=== PATIENT | female | born 1950 | race Caucasian/White ===

== ENCOUNTER → 2017-04-04 | Outpatient (CLI) | payer OTHER ==
[~2017-04-04] MED LIST: ABILIFY5 MG PO; ACTONEL 5MG TABL5 MG PO; EVISTA 60MG60 MG/TAB PO; KEPPRA 500MG500 MG PO; LEXAPRO 10MG10 MG PO
== END ==
LOC: MC.RAD 10:03
DX: Z12.31 Encounter for screening mammogram for malignant neoplasm of breast (principal); Z98.890 Other specified postprocedural states

== ENCOUNTER 2018-02-05 16:00 | Outpatient (RCR) | payer MEDICARE, OTHER | END 2018-04-21 | disposition home or self-care (01) | LOC: WSST | DX: R49.0 Dysphonia (principal) | CPT/HCPCS: G9171-GN; G9172-GN ==

== ENCOUNTER → 2018-05-01 | Outpatient (CLI) | payer MEDICARE, OTHER | LOC: MC.RAD 10:36 | DX: Z12.31 Encounter for screening mammogram for malignant neoplasm of breast (principal); Z98.82 Breast implant status ==

== ENCOUNTER → 2019-05-21 | Outpatient (CLI) | payer MEDICARE, OTHER ==
[~2019-05-21] MED LIST changes: +PRAVACHOL10 MG PO
== END ==
LOC: MC.RAD 12:55
DX: N64.4 Mastodynia (principal)
CPT/HCPCS: G0279

== ENCOUNTER → 2020-09-21 | Outpatient (CLI) | payer MEDICARE, OTHER | LOC: MC.RAD 13:00 | DX: Z12.31 Encounter for screening mammogram for malignant neoplasm of breast (principal) ==

== ENCOUNTER 2020-12-25 17:30 | Emergency (ER) | payer MEDICARE, OTHER ==
[~2020-12-25] VITALS: Ht 160 cm; Wt 65.5 kg
[2020-12-25 17:56] LABS: BASO % 0.4 % (0.0-2.0); EOS % 0.4 % (0-4.0); GRAN % 71.1 % (42.2-75.2); HEMOGLOBIN 10.7 g/dl (12.5-16.0); LYMPH # 1.3 (1.2-3.4); MEAN CELL VOLUME 88 fl (80.0-100.0); MEAN CORPUSCULAR HEMOGLOBIN 31 pg (27.0-31.0); MEAN CORPUSCULAR HGB CONC 35 g/dl (33.0-37.0); MONO # 0.6 (0.1-0.6); PLATELET COUNT 168 K/mm3 (130-400); RED BLOOD COUNT 3.45 M/mm3 (4.10-5.30); REDCELL DISTRIBUTION WIDTH-CV 12.2 % (11.5-14.5)
[2020-12-25 17:58] LABS: HEMATOCRIT 30.4 % (37.0-47.0)
[2020-12-25 18:04] LABS: INR 1.1 (0.8-3.0); PROTHROMBIN TIME 11.7 SECONDS (9.7-12.8)
[2020-12-25 18:07] LABS: PARTIAL THROMBOPLASTIN TIME 27.6 SECONDS (26.0-37.0)
[2020-12-25 18:09] LABS: ALBUMIN 3.7 gm/dL (3.5-5.0); BILIRUBIN,TOTAL 0.8 mg/dL (0.0-1.0); CALCIUM 8.6 mg/dL (8.4-10.2); CREATININE, serum 0.57 (0.52-1.25); POTASSIUM 3.9 mmol/L (3.4-5.0); TOTAL PROTEIN 6.4 gm/dL (6.4-8.2)
[2020-12-25 20:31] VITALS: TEMP 99.8
[2020-12-25 20:48] VITALS: BP 125/70; PULSE 81
== END 2020-12-25 20:48 | disposition home or self-care (01) ==
LOC: COL.ER 17:30
PROVIDERS: Student in an Organized Health Care Education/Training Program
DX: G52.9 Cranial nerve disorder, unspecified (principal)
CPT/HCPCS: Q9967

== ENCOUNTER 2020-12-30 11:09 | Emergency (ER) | payer MEDICARE, OTHER ==
[~2020-12-30] VITALS: Ht 160 cm; Wt 65.5 kg
[2020-12-30 12:38] LABS: CREATININE, serum 0.66 (0.52-1.25); POTASSIUM 4.1 mmol/L (3.4-5.0)
[2020-12-30 13:41] LABS: BASO % 0.3 % (0.0-2.0); EOS # 0.1 (0.0-0.7); GRAN # 4.3 (1.4-6.5); GRAN % 70.7 % (42.2-75.2); HEMOGLOBIN 11.3 g/dl (12.5-16.0); LYMPH # 1.2 (1.2-3.4); LYMPH % 20.3 % (20.0-51.0); MEAN CELL VOLUME 89 fl (80.0-100.0); MEAN CORPUSCULAR HEMOGLOBIN 31 pg (27.0-31.0); MEAN CORPUSCULAR HGB CONC 35 g/dl (33.0-37.0); MEAN PLATELET VOLUME 8.8 fl (7.4-10.4); MONO # 0.4 (0.1-0.6); PLATELET COUNT 259 K/mm3 (130-400); RED BLOOD COUNT 3.66 M/mm3 (4.10-5.30); REDCELL DISTRIBUTION WIDTH-CV 12.5 % (11.5-14.5)
[2020-12-30 13:42] LABS: HEMATOCRIT 32.5 % (37.0-47.0)
[2020-12-30 17:01] VITALS: BP 122/64; PULSE 68; TEMP 98.2
== END 2020-12-30 17:02 | disposition home or self-care (01) ==
LOC: COL.ER 11:09
PROVIDERS: Nurse Practitioner
DX: G52.9 Cranial nerve disorder, unspecified (principal)
CPT/HCPCS: A9585

== ENCOUNTER 2023-04-22 11:31 | Emergency (ER) | payer MEDICARE, OTHER ==
[~2023-04-22] VITALS: Ht 160 cm; Wt 60.5 kg
[2023-04-22 11:38] VITALS: TEMP 98.5
[2023-04-22 12:23] LABS: BASO % 0.3 % (0.0-2.0); EOS % 0.3 % (0.0-4.0); GRAN # 4.8 K/mm3 (1.4-6.5); GRAN % 73.2 % (42.2-75.2); LYMPH # 1.2 K/mm3 (1.2-3.4); LYMPH % 17.9 % (20.0-51.0); MEAN CELL VOLUME 89 fl (80.0-100.0); MEAN CORPUSCULAR HEMOGLOBIN 31 pg (27-31); MEAN CORPUSCULAR HGB CONC 35 g/dl (33.0-37.0); MEAN PLATELET VOLUME 9.2 fl (7.4-10.4); MONO # 0.5 K/mm3 (0.1-0.6); PLATELET COUNT 166 K/mm3 (130-400); RED BLOOD COUNT 4.15 M/mm3 (4.10-5.30); REDCELL DISTRIBUTION WIDTH-CV 11.9 % (11.5-14.5)
[2023-04-22 12:24] LABS: HEMATOCRIT 36.9 % (37.0-47.0)
[2023-04-22 12:38] LABS: CALCIUM 9.3 mg/dL (8.4-10.2); CREATININE, serum 0.77 mg/dL (0.57-1.11); POTASSIUM 4.3 mmol/L (3.5-4.5)
[2023-04-22] MEDS ORDERED: NORCO 325 MG-51 TAB PO (13:44)
[2023-04-22 15:10] VITALS: BP 135/87; PULSE 58
== END 2023-04-22 15:15 | disposition home or self-care (01) ==
LOC: COL.ER 11:31
PROVIDERS: Emergency Medicine
DX: S20.211A Contusion of right front wall of thorax, initial encounter (principal); W19.XXXA Unspecified fall, initial encounter; Y92.002 Bathroom of unspecified non-institutional (private) residence as the place of occurrence of the external cause
CPT/HCPCS: A9284; J1885; J7030; Q9967

== ENCOUNTER → 2023-11-02 | Outpatient (CLI) | payer MEDICARE, OTHER ==
[~2023-11-02] MED LIST changes: +NORCO 325 MG-51 TAB PO
== END ==
LOC: MC.RAD 09:30
DX: Z12.31 Encounter for screening mammogram for malignant neoplasm of breast (principal)